=== PATIENT | female | born 1960 | race Caucasian/White ===

== ENCOUNTER 2019-11-19 16:47 | Outpatient (CLI) | payer BC, SELFPAY ==
--- NOTE | ~2019-11-19 | XR_ITS ---
EXAMINATION: XR abdomen/kub 1V INDICATION: Gross hematuria TECHNIQUE: Supine views of the abdomen were obtained on 2 radiographs. COMPARISON: 10/08/2019 FINDINGS: A 5 mm calcification projects in the expected location of the right proximal ureter, decrea sed in size from the comparison examination where it measured 10 mm. There are phleboliths of the pel vis. No stone fragments are identified along the expected course of the right ureter. The bowel gas p attern is normal. A moderate volume of colonic stool is present. IMPRESSION: 1. Interval decrease in size of the previously described right proximal ureteral stone, likely due to treatment change. No stone fragments identified along the expected course of the ureter or within th e bladder. Reviewed, dictated and finalized at location A. T OFFICE SECRETARY IMPRESSION: 1. Interval decrease in size of the previously described right proximal uretera l stone, likely due to treatment change. No stone fragments identified along th e expected course of the ureter or within the bladder.
== END 2019-11-19 16:48 | disposition home or self-care (01) ==
LOC: ANHIMG 16:53
PROVIDERS: PCP Family Medicine; Visit Provider Nurse Practitioner Adult Health
DX: R31.0 Gross hematuria (principal)
CPT/HCPCS: 74018

== ENCOUNTER → 2020-07-20 17:38 | Outpatient (CLI) | payer BC, SELFPAY ==
--- NOTE | ~2020-07-20 | MM_ITS ---
EXAMINATION: MM screening kerwin BI w jose d HISTORY: Screening TECHNIQUE: Craniocaudal and mediolateral oblique 3-D tomosynthesis images were obtained and synthetic 2-D images were generated. CAD analysis was submitted and interpreted. COMPARISON: Comparison to multiple prior studies sequentially, with oldest reviewed study dated 02/16. BREAST PARENCHYMAL COMPOSITION: There are scattered areas of fibroglandular density. FINDINGS: There is no evidence of suspicious mass, calcification, or architectural distortion to sugg est malignancy in either breast. There has been no suspicious interval change. IMPRESSION: 1. No mammographic evidence of malignancy. 2. Recommend routine screening mammography in one year. BI-RADS Category 1: Negative Reviewed, dictated and finalized at location A.
== END ==
PROVIDERS: PCP Family Medicine; Visit Provider Student in an Organized Health Care Education/Training Program
DX: Z12.31 Encounter for screening mammogram for malignant neoplasm of breast (principal)
CPT/HCPCS: 77063; 77067

== ENCOUNTER 2021-05-23 15:26 | Outpatient (CLI) | payer BC, SELFPAY ==
--- NOTE | ~2021-05-23 | XR_ITS ---
XR abdomen/kub 1V DATE: 05/23/2021 15:47 INDICATION: Right ureteral stone TECHNIQUE: COMPARISON: None FINDINGS: Approximately 4.5 x 6.5 mm and 2.5 x 5 mm calcifications overlie the right ureter at approx imately S4-5 level. Possible smaller slightly proximal right distal ureteral calcified calculus. Thes e were not present at this location on the 11/19/2019 KUB. They appear to have been present in the low er pole of the right kidney on that prior examination. No calcifications are noted overlying the renal silhouettes on the current KUB. The psoas shadows are intact. No apparent visceromegaly. There is a moderately prominent amount fecal material in the colon but no evidence of bowel obstructi on. Included skeletal structures are unremarkable. IMPRESSION: 2, possibly 3, probable distal right ureteral calcified calculi Reviewed, dictated and finalized at Location A. Reviewed, dictated and finalized at location A.
== END 2021-05-23 15:27 | disposition home or self-care (01) ==
PROVIDERS: PCP Family Medicine; Visit Provider Nurse Practitioner Adult Health
DX: N20.1 Calculus of ureter (principal)
CPT/HCPCS: 74018

== ENCOUNTER 2021-05-29 16:09 | Outpatient (CLI) | payer BC, SELFPAY ==
--- NOTE | ~2021-05-29 | XR_ITS ---
XR abdomen/kub 1V DATE: 05/29/2021 16:30 INDICATION: Right ureteral stones TECHNIQUE: AP projection, 2 views COMPARISON: 05/23/2021 KUB 09/23/2019 KUB FINDINGS: 2 calcified calculi overlie the distal right ureter, relatively stable in position since . Bilateral calcified pelvic phleboliths. The psoas shadows are intact. No visceromegaly. There is a prominent of fecal material within the colon. No bowel obstruction. IMPRESSION: 2 distal right ureteral calcified calculi persist Reviewed, dictated and finalized at Location A. Reviewed, dictated and finalized at location A.
== END 2021-05-29 16:10 | disposition home or self-care (01) ==
PROVIDERS: PCP Family Medicine; Visit Provider Nurse Practitioner Adult Health
DX: N20.1 Calculus of ureter (principal)
CPT/HCPCS: 74018

== ENCOUNTER 2021-05-31 02:27 | Day surgery (SDC) | payer BC, SELFPAY ==
[2021-05-30 13:20] VITALS: BMI 31.3
[2021-05-31] VITALS (8 sets, daily range): BP systolic 119–160; BP diastolic 72–93; PULSE 53–73; RESP 13–20; TEMP 36.4–36.6; O2SAT 94–100
--- NOTE | ~2021-05-31 | XR_ITS ---
EXAMINATION: XR stent kub - surgery EXAM DATE: 05/31/2021 13:06 INDICATION: Right-sided obstructive nephropathy. TECHNIQUE: Fluoroscopy used during XR stent kub - surgery performed by Dr. Addy Truong MD, ur ologist. The radiologist Natanael Vanessa M.D. dictating this report of the image(s) available was not pr esent for the procedure. Total fluoroscopic time of 34 seconds. The DAP for this procedure was 504 radcm2. A total of 5 images sent to PACS from the exam. FINDINGS: Stock Lifter images demonstrate 2 sizable calcific densities projecting over the distal aspect ri ght ureter. Cannot identify these 2 calcifications on subsequent images, and a double-J ureteral sten t was placed. Correlate with procedure note. IMPRESSION: Fluoroscopy used during right ureteral stone extraction, stent placement. Reviewed, dictated and finalized at location A. IMPRESSION: Fluoroscopy used during right ureteral stone extraction, stent plac ement.
--- NOTE | 2021-05-31 07:00 | WPDHPUPDATE1 ---
History and Physical Update Update Date/Time: 05/31/21 07:00 History and Physical has been reviewed, including an updated exam of the patient. There are NO changes in the patient's condition. Risks, benefits, and alternatives have been discussed and questions answered. Patient agrees to proceed with procedure.
[2021-05-31] MEDS: LACTATED RINGERS 1,000 ML 30 ML IV CONT ×2 (10:06→13:10)
--- NOTE | 2021-05-31 11:22 | WPDANESEPPF ---
Anes - Initial Pre Proc Eval Procedure: Operation Date: 05/31/21 11:30 Proposed Procedures p Cystoscopy Right Ureteroscopy, Stone Ext, Possible Right Retrograde Pyelogram, Possible Stent Placement, - Addy Truong MD s Possible Holmium Laser Procedure - Addy Truong MD Date/Time: 05/31/21 11:22 Surgeon: Addy Truong MD Pre Op Diagnosis: right ureteral stone, renal stone Patient Data Age: 60 Gender: F Height: 1.7 m Weight: 94.5 kg Last Vital Signs Temp 97.8 F 05/31/21 09:45 Pulse 73 05/31/21 09:45 Resp 18 05/31/21 09:45 BP 147/93 H 05/31/21 09:45 Pulse Ox 98 05/31/21 09:45 Allergies Allergy/AdvReac Type Severity Reaction Status Date / Time cephalexin Allergy Unknown Skin Verified 05/31/21 10:15 Reaction naproxen Allergy Unknown Skin Verified 05/31/21 10:15 Reaction Home Medications Medication Instructions Recorded Confirmed Type ascorbate calcium (vitamin C) 500 500 mg PO DAILY 06/01/20 05/31/21 History mg tablet multivitamin 1 tablet PO DAILY 06/01/20 05/31/21 History risedronate 35 mg tablet 35 mg PO WEEKLY #12 tablet 05/30/21 05/31/21 Rx sertraline 25 mg PO QAM 05/30/21 05/31/21 History Patient hx anesthesia problems: none Family hx anesthesia problems: none PMFSH Past Medical History Medical History (Updated 04/18/21 @ 10:20 by Birgit Jewell MD) History of one miscarriage History of vaginal delivery x 3 Surgical History Surgical History History of bilateral tubal ligation History of breast augmentation History of dilation and curettage History of hernia repair History of hysterectomy ovaries intact Family History Family History Sibling Family history of malignant neoplasm of breast in first degree relative Social History Social History (Updated 04/18/21 @ 10:19 by Aliza Ramírez CMA) Smoking packs per day: 0.5 Smoking cigarettes per day: 10.0 Years smoked: 30 Smoking pack-years: 15.00 Smoking status: Former smoker Tobacco type: cigarettes Second hand tobacco smoke exposure: No Smoking end date: 10/06/04 Alcohol intake: current Alcohol use details: 2 DRINKS PER MONTH Living arrangements: alone Spiritual care concerns: No Anes - Eval Final PreProcedure Day of Procedure 05/31/21 11:22 Patient weight: obese Heart: regular rate and rhythm Lungs: clear to auscultation Airway: Mallampati scale class II Neurological: alert and oriented Last oral intake: >/= 8 hours ASA classification: II Emergent: no Anesthetic plan: proceed Anesthesia type and monitoring: general GIVS and standard monitoring Informed Consent: The patient's anesthetic plan and its attendant risks and benefits were discussed with the patient/family/POA. Questions were solicited and answers provided to the satisfaction of the patient/family/POA.
--- NOTE | 2021-05-31 13:19 | W.PM.PROC2 ---
Procedure Note - Detailed Date of Procedure 05/31/21 Pre-op Diagnosis Right ureteral stones Post-op Diagnosis same Procedure Performed Cystoscopy, right ureteroscopy, laser lithotripsy, stone extraction and right ureteral stent placement Surgeon Addy Truong MD Anesthesia general Description of Procedure The patient was brought to the operative suite where she is prepped and draped in a routine sterile fashion while in the dorsal lithotomy position after the uneventful induction of a general LMA anesthetic. A 19F rigid cystoscope was placed in the bladder. The patient had no evidence of urethral stricture or bladder neck contracture. The bladder mucosa was endoscopically normal without hyperemia or neoplasm. There was a single, orthotopic ureteral orifice bilaterally. A 0.035 glidewire was advanced into the right renal pelvis under fluoroscopy. The distal ureter was dilated with an 8F/10F ureteral dilator. Ureteroscopy was undertaken with a short tapered semi-rigid ureteroscope. With ureteroscopy I fractured the stone into smaller pieces using a 273micron Holmium laser fiber with the Holmium laser. I was able to then extract the stone pieces using a 1.9F Escape, Nitinol, disposable stone basket]. Due to the extent of this manipulation I did place a 4.8F double-J ureteral stent. The proximal coil of the stent was confirmed to be in the renal pelvis and the distal coil in the bladder. The patient's bladder was emptied and he was taken to the recovery room having tolerated this procedure well. Estimated Blood Loss 0 Drains Yes Packing No Pathology yes Complications No immediate complications Condition stable Disposition PACU
== END 2021-05-31 14:53 | disposition home or self-care (01) ==
PROVIDERS: PCP Family Medicine; Visit Provider Urology
PROC: (CPT 52352; principal; 2021-05-31 11:30)
PROC: (CPT 52356; 2021-05-31 11:30)
DX: N20.1 Calculus of ureter (principal); Z87.891 Personal history of nicotine dependence; E66.9 Obesity, unspecified; Z68.32 Body mass index [BMI] 32.0-32.9, adult
CPT/HCPCS: 52356; 74420; 82365; 88300; A9270; C1769; C2617; J1100; J2250; J2405; J2704; J3010; J7120

== ENCOUNTER → 2021-09-12 15:03 | Outpatient (CLI) | payer BC, SELFPAY ==
--- NOTE | ~2021-09-12 | MM_ITS ---
EXAMINATION: MM screening kerwin BI w jose d HISTORY: Screening TECHNIQUE: Craniocaudal and mediolateral oblique 3-D tomosynthesis images were obtained and synthetic 2-D images were generated. CAD analysis was submitted and interpreted. COMPARISON: Comparison to multiple prior studies sequentially, with oldest reviewed study dated 02/20. BREAST PARENCHYMAL COMPOSITION: Breast composed of scattered areas of fibroglandular density FINDINGS: Benign-appearing bilateral breast masses are stable. There is no evidence of suspicious mas s, calcification, or architectural distortion to suggest malignancy in either breast. There has been no suspicious interval change. IMPRESSION: 1. No mammographic evidence of malignancy. 2. Recommend routine screening mammography in one year. BI-RADS Category 1: Negative Reviewed, dictated and finalized at location A. [employer]
== END ==
PROVIDERS: PCP Family Medicine; Visit Provider Student in an Organized Health Care Education/Training Program
DX: Z12.31 Encounter for screening mammogram for malignant neoplasm of breast (principal)
CPT/HCPCS: 77063; 77067

== ENCOUNTER 2021-09-12 15:52 | Outpatient (CLI) | payer BC, SELFPAY ==
--- NOTE | ~2021-09-12 | XR_ITS ---
EXAMINATION: XR abdomen/kub 1V INDICATION: Right ureteral stone TECHNIQUE: Supine views of the abdomen were obtained on 2 radiographs. COMPARISON: 05/29/2021 FINDINGS: No definite urolithiasis is identified. Previously described calculi in the right distal ur eter are no longer evident. There are phleboliths of the pelvis. The bowel gas pattern is normal. IMPRESSION: 1. No definite urolithiasis identified. Interval treatment or passage of previously described right d istal ureteral calculi. Reviewed, dictated and finalized at location A. E SEARCHER IMPRESSION: 1. No definite urolithiasis identified. Interval treatment or passage of previo usly described right distal ureteral calculi.
== END 2021-09-12 15:53 | disposition home or self-care (01) ==
LOC: ANHIMG 15:55
PROVIDERS: PCP Family Medicine; Visit Provider Urology
DX: N20.1 Calculus of ureter (principal)
CPT/HCPCS: 74018

== ENCOUNTER 2022-09-13 15:16 | Outpatient (CLI) | payer BC, SELFPAY ==
--- NOTE | ~2022-09-13 | XR_ITS ---
XR abdomen/kub 1V 09/13/2022 15:39 Indication: Right ureteral stone. Procedure: KUB Comparison: 09/12/2021 Findings: Bilateral pelvic calcifications are stable, likely phleboliths. No calcifications overlie t he kidneys. Bowel gas pattern nonobstructive. No acute osseous abnormality. Impression: 1: No acute abdominal abnormality. Reviewed, dictated and finalized at location A. MILL OPERATOR CORE SAND Impression: 1: No acute abdominal abnormality.
--- NOTE | ~2022-09-13 | XR_ITS ---
XR chest 2V DATE: 09/13/2022 15:39 INDICATION: Shortness of breath TECHNIQUE: PA and lateral views COMPARISON: None FINDINGS: Normal heart size. No hilar or mediastinal enlargement. Moderate hiatal hernia with air-fluid level. No pulmonary infiltrate or consolidation, pleural effusion or pulmonary vascular congestion or pneumo thorax. There is osteopenia. There is mild dextroscoliosis of the thoracic spine. IMPRESSION: No active cardiac pulmonary disease Moderate hiatal hernia Reviewed, dictated and finalized at location B. END TESTER
== END 2022-09-13 15:17 | disposition home or self-care (01) ==
PROVIDERS: PCP Family Medicine; Visit Provider Urology
DX: Z86.16 Personal history of COVID-19 (principal); R05.9 Cough, unspecified; R06.02 Shortness of breath; K44.9 Diaphragmatic hernia without obstruction or gangrene
CPT/HCPCS: 71046; 74018

== ENCOUNTER → 2023-01-15 11:37 | Outpatient (CLI) | payer BC, SELFPAY ==
--- NOTE | ~2023-01-15 | MM_ITS ---
EXAMINATION: MM screening kerwin BI w jose d HISTORY: Screening mammogram TECHNIQUE: Craniocaudal and mediolateral oblique 3-D tomosynthesis images were obtained and synthetic 2-D images were generated. CAD analysis was submitted and interpreted. COMPARISON: 09/12/2021, 07/20/2020 bilateral screening mammogram examinations BREAST PARENCHYMAL COMPOSITION: The breasts are almost entirely fatty. FINDINGS: Scattered small bilateral small low-density circumscribed masses and occasional benign calc ifications. There is no evidence of suspicious mass, calcification, or architectural distortion to redd ggest malignancy in either breast. There has been no suspicious interval change. IMPRESSION: 1. No mammographic evidence of malignancy. 2. Recommend routine screening mammography in one year. BI-RADS Category 2: Benign finding(s). Reviewed, dictated and finalized at location A.
== END ==
PROVIDERS: PCP Family Medicine; Visit Provider Obstetrics & Gynecology
DX: Z12.31 Encounter for screening mammogram for malignant neoplasm of breast (principal)
CPT/HCPCS: 77063; 77067

== ENCOUNTER → 2023-04-14 14:50 | Outpatient (CLI) | payer BC, SELFPAY ==
--- NOTE | ~2023-04-14 | DEXA_ITS ---
Bone Density Report Name: MARSHA NEWTON Age: 62 Sex: Female Ethnicity: White Date of : 1960 Indication: osteopenia; monitoring treatment; height loss; hysterectomy; postmenopausal Referring Provider: LAMAR NGUYỄN Study: Bone densitometry was performed. Exam Date: April 14, 2023 Accession number: [id number] Bone Density: Region BMD T-score Z-score Classification AP Spine (L1-L4) 0.831 -2.0 -0.4 Osteopenia Femoral Neck (Left) 0.701 -1.3 0.1 Osteopenia Total Hip (Left) 0.906 -0.3 0.8 Normal Femoral Neck (Right) 0.752 -0.9 0.5 Normal Total Hip (Right) 0.908 -0.3 0.8 Normal Total Hip Mean 0.907 -0.3 0.8 Normal World Health Organization criteria for BMD impression classify patients as: Normal (T-score at or above -1.0), Osteopenia (T-score between -1.0 and -2.5), or Osteoporosis (T-score at or below -2.5). 10-year Fracture Risk: FRAX not reported because: Treated for osteoporosis Previous Exams: Region Exam Age BMD T-score BMD Change BMD Change Date g/cm2 vs Baseline vs Previous AP Spine(L1-L4) 04/14/2023 62 0.831 -2.0 -0.009 -0.045* 06/28/2019 59 0.876 -1.6 0.036* 0.091* 02/21/2016 55 0.785 -2.4 -0.055* -0.055* 11/15/2013 53 0.840 -1.9 Total Hip(Left) 04/14/2023 62 0.906 -0.3 0.030* -0.014 06/28/2019 59 0.919 -0.2 0.043* 0.078* 02/21/2016 55 0.841 -0.8 -0.035* -0.035* 11/15/2013 53 0.876 -0.5 Total Hip(Right) 04/14/2023 62 0.908 -0.3 0.000 0.039* 06/28/2019 59 0.869 -0.6 -0.039* -0.007 02/21/2016 55 0.876 -0.5 -0.032* -0.032* 11/15/2013 53 0.908 -0.3 *Denotes significance at 95% confidence level, LSC for AP Spine = 0.022 g/cm2, LSC for Total Hip = 0.027 g/cm2 Clinical Information Provided by Patient: Is being treated for osteoporosis Has used the following medications: Actonel (i.e. risedronate), Vitamin D, Calcium Has the following medical conditions: Hysterectomy Patient maximum height was 68.0 Menopause Age: 45 Does not regularly consume dairy products Onset of menses at age 13 Number of children 4 Impression: The patient has low bone mass, based on the Total Spine T-score. The BMD for the AP Spine(L1-L4) decreased, changing by -0.045 since the last DXA exam. Discussion: SIGNIFICANT BONE LOSS OBSERVED. Adherence to
== END ==
PROVIDERS: PCP Family Medicine; Visit Provider Registered Nurse
DX: M85.89 Other specified disorders of bone density and structure, multiple sites (principal)
CPT/HCPCS: 77080

== ENCOUNTER 2023-07-08 00:06 | Day surgery (SDC) | payer BC, SELFPAY ==
[2023-07-08 11:39] VITALS: BMI 32.5
[2023-07-08 11:40] VITALS: BP 152/81; PULSE 77; RESP 18; TEMP 36; O2SAT 97
[2023-07-08] MEDS: LACTATED RINGERS 1,000 ML 150 ML IV CONT (11:43)
--- NOTE | 2023-07-08 11:48 | WPDANESEPPF ---
Anes - Initial Pre Proc Eval Procedure: Operation Date: 07/08/23 13:00 Proposed Procedures p Colonoscopy - Alberto Sanabria MD Date/Time: 07/08/23 11:48 Surgeon: Alberto Sanabria MD Pre Op Diagnosis: HX colon polyps, neoplasm screening Patient Data Age: 63 Gender: F Height: 1.7 m Weight: 94.1 kg Last Vital Signs Temp 96.8 F L 07/08/23 11:40 Pulse 77 07/08/23 11:40 Resp 18 07/08/23 11:40 BP 152/81 H 07/08/23 11:40 Pulse Ox 97 07/08/23 11:40 O2 Del Method Room Air 07/08/23 11:40 Allergies Allergy/AdvReac Type Severity Reaction Status Date / Time cephalexin Allergy Unknown Skin Verified 07/08/23 11:39 Reaction naproxen Allergy Unknown Skin Verified 07/08/23 11:39 Reaction Home Medications Medication Instructions Recorded Confirmed Type sertraline 25 mg tablet 25 mg PO DAILY #90 tabs 07/17/22 07/08/23 Rx Patient hx anesthesia problems: none Family hx anesthesia problems: none Results Review: All pre-operative results and documents have been reviewed as part of the pre-operative evaluation. [facility] Past Medical History Medical History (Updated 04/30/23 @ 09:47 by Birgit Jewell MD) Anxiety History of COVID-19 5.29.22 History of one miscarriage History of vaginal delivery x 3 Mixed hyperlipidemia Right ureteral stone 1.3.20 flexible cystoscopy and R ESWL Surgical History Surgical History H/O lithotripsy History of bilateral tubal ligation History of breast augmentation History of dilation and curettage History of hernia repair History of hysterectomy Ovaries intact Family History Family History Sibling Family history of malignant neoplasm of breast in first degree relative Social History Social History Smoking packs per day: 0.5 Smoking cigarettes per day: 10.0 Years smoked: 30 Smoking pack-years: 15.00 Smoking status: Former smoker Tobacco type: cigarettes Second hand tobacco smoke exposure: No Smoking end date: 10/06/04 Alcohol intake: current Alcohol use details: occasional Substance use type: does not use Lack of Transportation: No Lack of Food: Never True Current Housing: I Have Housing Concerned About Future Housing: No Difficulty Paying Gas/Electric Bills: No Difficulty Paying for Meds: No Currently Unemployed: No Education: Trade/Vocational Certificate Difficulty w/ Childcare or Family Care: No Living arrangements: alone Spiritual care concerns: No Anes - Eval Final PreProcedure Day of Procedure 07/08/23 11:48 Patient weight: normal Heart: regular rate and rhythm Lungs: clear to auscultation Airway: Mallampati scale class II Neurological: alert and oriented Last oral intake: >/= 8 hours ASA classification: II Emergent: no Anesthetic plan: proceed Anesthesia type and monitoring: general GIVS and standard monitoring Results Review: All pre-operative results and documents have been reviewed as part of the pre-operative evaluation. Informed Consent: The patient's anesthetic plan and its attendant risks and benefits were discussed with the patient/family/POA. Questions were solicited and answers provided to the satisfaction of the patient/family/POA.
--- NOTE | 2023-07-08 12:06 | PM.HPGS ---
History of Present Illness History of Present Illness Consent: Risks, benefits, and alternatives have been discussed and questions answered. Patient agrees to proceed with procedure. Chief complaint: HX colon polyps, neoplasm screening Narrative: Jimena Rebolledo is a 63 year old female Presents for screening colonoscopy. Patient's current weight appetite and bowel movements are normal. Patient denies abdominal pain. She has had no bleeding. Family history is significant her mother had colon polyps. Patient's most recent colonoscopy 2016 was unremarkable. Review of Systems Review of Systems: Review of systems noncontributory. [facility] Past Medical History Medical History (Updated 04/30/23 @ 09:47 by Birgit Jewell MD) Anxiety History of COVID-19 5.29.22 History of one miscarriage History of vaginal delivery x 3 Mixed hyperlipidemia Right ureteral stone 1.3.20 flexible cystoscopy and R ESWL Surgical History Surgical History H/O lithotripsy History of bilateral tubal ligation History of breast augmentation History of dilation and curettage History of hernia repair History of hysterectomy Ovaries intact Family History Family History Sibling Family history of malignant neoplasm of breast in first degree relative Social History Social History Smoking packs per day: 0.5 Smoking cigarettes per day: 10.0 Years smoked: 30 Smoking pack-years: 15.00 Smoking status: Former smoker Tobacco type: cigarettes Second hand tobacco smoke exposure: No Smoking end date: 10/06/04 Alcohol intake: current Alcohol use details: occasional Substance use type: does not use Lack of Transportation: No Lack of Food: Never True Current Housing: I Have Housing Concerned About Future Housing: No Difficulty Paying Gas/Electric Bills: No Difficulty Paying for Meds: No Currently Unemployed: No Education: Trade/Vocational Certificate Difficulty w/ Childcare or Family Care: No Living arrangements: alone Spiritual care concerns: No Meds Home Medications and Allergies Home Medications Medication Instructions Recorded Confirmed Type sertraline 25 mg tablet 25 mg PO DAILY #90 tabs 07/17/22 07/08/23 Rx Allergies Allergy/AdvReac Type Severity Reaction Status Date / Time cephalexin Allergy Unknown Skin Verified 07/08/23 11:39 Reaction naproxen Allergy Unknown Skin Verified 07/08/23 11:39 Reaction Vital Signs Vital Signs - 24 hr 07/08/23 11:40 Temperature 96.8 F L Pulse Rate 77 Respiratory Rate 18 Blood Pressure 152/81 H Pulse Oximetry 97 Oxygen Delivery Room Air Exam Narrative: Physical exam reveals patient to be alert. Vital signs stable. HEENT exam is unremarkable. Patient is anicteric. Lungs are clear to auscultation and percussion. Heart is without murmur or extra sounds. Abdomen bowel sounds are present soft nontender with no organomegaly. Digital external rectal exam normal. Assessment and Plan Assessment and plan (1) Personal history of colonic polyps: Code(s): Z86.010 - Personal history of colonic polyps Status: Acute Assessment and Plan: Patient has a distant history of colon polyps. Family history is also significant for colon polyps. Plan for surveillance screening colonoscopy now and consider this a 5 year intervals.
[2023-07-08 13:29] VITALS: BP 110/57; PULSE 64; RESP 22; O2SAT 97
[2023-07-08 13:39] VITALS: BP 106/68; PULSE 56; RESP 20; O2SAT 99
[2023-07-08 13:49] VITALS: BP 122/80; PULSE 60; RESP 20; O2SAT 99
== END 2023-07-08 13:56 | disposition home or self-care (01) ==
PROVIDERS: PCP Family Medicine; Visit Provider Internal Medicine Gastroenterology
PROC: 0DJD8ZZ Inspection of Lower Intestinal Tract, Via Natural or Artificial Opening Endoscopic (ICD-10-PCS; CPT 45378; principal; 2023-07-08 13:00)
DX: Z12.11 Encounter for screening for malignant neoplasm of colon (principal); K64.8 Other hemorrhoids; K57.30 Diverticulosis of large intestine without perforation or abscess without bleeding; Z86.010 Personal history of colon polyps; Z83.719 Family history of colon polyps, unspecified; F41.9 Anxiety disorder, unspecified; Z87.891 Personal history of nicotine dependence
CPT/HCPCS: 45378; J2704; J7120

== ENCOUNTER 2024-08-11 15:34 | Outpatient (CLI) | payer BC, SELFPAY ==
--- NOTE | ~2024-08-11 | MM_ITS ---
EXAMINATION: MM screening kerwin BI w jose d HISTORY: Screening TECHNIQUE: Craniocaudal and mediolateral oblique 3-D tomosynthesis images were obtained and synthetic 2-D images were generated. CAD analysis was submitted and interpreted. COMPARISON: Comparison to multiple prior studies sequentially, with oldest reviewed study dated 04/16. BREAST PARENCHYMAL COMPOSITION: Not Dense. The breasts are almost entirely fatty. FINDINGS: There is no evidence of suspicious mass, calcification, or architectural distortion to sugg est malignancy in either breast. There has been no suspicious interval change. IMPRESSION: 1. No mammographic evidence of malignancy. 2. Recommend routine screening mammography in one year. BI-RADS Category 1: Negative Reviewed, dictated and finalized at location B. [place] BRAND AMBASSADOR
== END 2024-08-11 15:35 | disposition home or self-care (01) ==
LOC: MICIMG 15:35
PROVIDERS: PCP Family Medicine; Visit Provider Nurse Practitioner Family
DX: Z12.31 Encounter for screening mammogram for malignant neoplasm of breast (principal)
CPT/HCPCS: 77063; 77067